=== PATIENT | female | born 1940 | race African-American/Black ===

== ENCOUNTER → 2016-12-14 | Outpatient (CLI) | payer MEDICARE | LOC: WI 08:03 | PROVIDERS: ATTEND Internal Medicine | DX: Z85.3 Personal history of malignant neoplasm of breast (principal) | CPT/HCPCS: 77066; G0204 ==

== ENCOUNTER → 2017-02-14 | Outpatient (CLI) | payer MEDICARE | LOC: OD 11:52 | PROVIDERS: ATTEND Internal Medicine | DX: M25.531 Pain in right wrist (principal) ==

== ENCOUNTER → 2017-12-26 | Outpatient (CLI) | payer MEDICARE ==
--- NOTE | 2017-12-26 10:22 | WOMENS IMAGING REPORT ---
EXAM DESCRIPTION: 3D DX MAMMO BILAT COMPLETED DATE/TIME: 12/26/2017 8:06 am REASON FOR STUDY: BREAST CANCER D05.11 INTRADUCTAL CARCINOMA IN SITU OF RIGHT BREAST COMPARISON: 12/14/2016 and 12/14/2015. TECHNIQUE: Standard craniocaudal and mediolateral oblique views of each breast recorded using digita l acquisition and breast tomosynthesis. Additional true lateral and exaggerated CC lateral images of the right breast with tomosynthesis. LIMITATIONS: None. FINDINGS: RIGHT BREAST MASSES: No suspicious masses. CALCIFICATIONS: No new or suspicious calcifications. ARCHITECTURAL DISTORTION: Stable surgical changes and treatment changes. DEVELOPING DENSITY: None. ASYMMETRY: None noted. OTHER: No other significant findings. LEFT BREAST MASSES: No suspicious masses. CALCIFICATIONS: No new or suspicious calcifications. ARCHITECTURAL DISTORTION: None. DEVELOPING DENSITY: None. ASYMMETRY: None noted. OTHER: No other significant finding. Read with the assistance of CAD: .[facility] - R2 Cenova Version 1.3 .[facility] - R2 Cenova Version 1.3 .[facility] Imaging - R2 Cenova Version 2.4 .[facility] - R2 Cenova Version 2.4 .[facility] - R2 Software Design Analyst Version 9.2 IMPRESSION: Stable mammographic appearance of both breasts. Stable surgical changes and treatment c hanges in the right breast. BREAST DENSITY: b. There are scattered areas of fibroglandular density. BIRAD: 2 Benign findings. RECOMMENDATION: RECOMMENDED FOLLOW UP: Post lumpectomy protocol. COMMENT: The patient has been notified of the results by letter per SA requirements. Additional no tification policies are in place for contacting patient with suspicious or incomplete findings. Quality ID #225: The [employer] recommends an annual screening mammogram for women aged 40 years or over. This facility utilizes a reminder system to ensure that all patients receive reminder letters, and/or direct phone calls for appointments. This includes reminders for routine scr eening mammograms, diagnostic mammograms, or other Breast Imaging Interventions when appropriate. Th is patient will be placed in the appropriate reminder system. The [employer] (ACR) has developed recommendations for screening MRI of the breast s in certain patient populations, to be used in conjunction with mammography. Breast MRI surveillanc e may be appropriate for women with more than 20% lifetime risk of developing breast cancer as deter mined by genetic testing, significant family history of the disease, or history of mantle radiation f or Hodgkins Disease. ACR Practice Guidelines 2008. DBT Technology DBT is a type of tomographic mammography. With conventional mammography, overlapping breast tissue ma y make lesions difficult to detect, even with good compression. DBT uses an x-ray tube that rotates a round the breast, taking images at different angles. These images are then combined to create thin sl ices of the breast that the radiologist can view as a 3D reconstruction. The [employer] unit can perform full-field digital mammograms (2D imaging); or DBT (3D imaging); or both, in a combination mode that quickly performs both the mammogram and the tomosynthesis scan while the breast is still compressed. PQRS 6045F: Fluoroscopic imaging is not utilized for breast tomosynthesis. TECHNICAL DOCUMENTATION: FINDING NUMBER: (1) ASSESSMENT: (1) JOB ID: [id number] [employer]- All Rights Reserved Reading location - IP/workstation name: [email or web address]
== END ==
LOC: WI 07:38
PROVIDERS: ATTEND Internal Medicine
DX: D05.11 Intraductal carcinoma in situ of right breast (principal)
CPT/HCPCS: 77066; G0279; 77062

== ENCOUNTER → 2018-07-11 | Outpatient (CLI) | payer MEDICARE ==
--- NOTE | 2018-07-11 08:22 | RADIOLOGY REPORT (SQ) ---
EXAM DESCRIPTION: U/S RETROPERITON (RENAL/AORTA) COMPLETED DATE/TIME: 07/11/2018 8:05 am REASON FOR STUDY: CKD IV (N18.4) N18.4 CHRONIC KIDNEY DISEASE, STAGE 4 (SEVERE) COMPARISON: 02/05/2015 TECHNIQUE: Dynamic and static grayscale images acquired of the kidneys and bladder and recorded on P ACS. Additional selected color Doppler and spectral images recorded. LIMITATIONS: None. FINDINGS: RIGHT KIDNEY: The right kidney measures 9.1 cm in length. Mild diffuse increased echogen icity of the kidney, likely related to the patient's underlying history of medical renal disease. No solid or suspicious masses. No hydronephrosis. No calcifications. LEFT KIDNEY: The left kidney measures 8.4 cm in length. Mild diffuse increased echogenicity, likely related to the patient's underlying history medical renal disease. No solid or suspicious masses. N o hydronephrosis. No calcifications. BLADDER: The urinary bladder is incompletely distended. OTHER FINDINGS: No other significant finding. IMPRESSION: 1. Mild diffuse increased echogenicity of the kidneys, likely related to the patient's underlying history of medical renal disease. 2. No evidence of hydronephrosis. 3. The urinary bladder is incompletely distended. TECHNICAL DOCUMENTATION: JOB ID: [id number] [employer]- All Rights Reserved Reading location - IP/workstation name: [email or web address]
== END ==
LOC: RAD 07:19
PROVIDERS: ATTEND Internal Medicine
DX: N18.4 Chronic kidney disease, stage 4 (severe) (principal)
CPT/HCPCS: 76770

== ENCOUNTER → 2019-01-08 | Outpatient (CLI) | payer MEDICARE ==
--- NOTE | 2019-01-08 10:40 | WOMENS IMAGING REPORT ---
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 True lateral view right breast. LIMITATIONS: None. FINDINGS: RIGHT BREAST MASSES: No suspicious masses. CALCIFICATIONS: No new or suspicious calcifications. ARCHITECTURAL DISTORTION: Upper outer quadrant, stable. DEVELOPING DENSITY: None. ASYMMETRY: None noted. OTHER: No other significant findings. LEFT BREAST MASSES: No suspicious masses. CALCIFICATIONS: No new or suspicious calcifications. ARCHITECTURAL DISTORTION: None. DEVELOPING DENSITY: None. ASYMMETRY: None noted. OTHER: No other significant finding. Read with the assistance of CAD: .[facility] - R2 Cenova Version 1.3 .[facility] Imaging - R2 Cenova Version 2.1 .[facility] - R2 Cenova Version 2.4 .[facility] [place] R2 Cenova Version 2.4 .[facility] - R2 Quality Assurance Tech Version 9.2 IMPRESSION: Stable mammographic pattern. BREAST DENSITY: b. There are scattered areas of fibroglandular density. BIRAD: 2 Benign findings. RECOMMENDATION: RECOMMENDED FOLLOW UP: Annual mammographic follow-up. SPECIFIC INTERVENTION/IMAGING/CONSULTATION RECOMMENDED:No additional intervention/ imaging/consultati on needed at this time. COMMUNICATION:The imaging findings were not discussed with the patient. Her referring provider has be en notified of the findings. COMMENT: The patient has been notified of the results by letter per SA requirements. Additional no tification policies are in place for contacting patient with suspicious or incomplete findings. Quality ID #225: The [employer] recommends an annual screening mammogram for women aged 40 years or over. This facility utilizes a reminder system to ensure that all patients receive reminder letters, and/or direct phone calls for appointments. This includes reminders for routine scr eening mammograms, diagnostic mammograms, or other Breast Imaging Interventions when appropriate. Th is patient will be placed in the appropriate reminder system. The [employer] (ACR) has developed recommendations for screening MRI of the breast s in certain patient populations, to be used in conjunction with mammography. Breast MRI surveillanc e may be appropriate for women with more than 20% lifetime risk of developing breast cancer as deter mined by genetic testing, significant family history of the disease, or history of mantle radiation f or Hodgkins Disease. ACR Practice Guidelines 2008. DBT Technology DBT is a type of tomographic mammography. With conventional mammography, overlapping breast tissue ma y make lesions difficult to detect, even with good compression. DBT uses an x-ray tube that rotates a round the breast, taking images at different angles. These images are then combined to create thin sl ices of the breast that the radiologist can view as a 3D reconstruction. The [employer] unit can perform full-field digital mammograms (2D imaging); or DBT (3D imaging); or both, in a combination mode that quickly performs both the mammogram and the tomosynthesis scan while the breast is still compressed. PQRS 6045F: Fluoroscopic imaging is not utilized for breast tomosynthesis. TECHNICAL DOCUMENTATION: FINDING NUMBER: (1) ASSESSMENT: (1) JOB ID: [id number] [employer]- All Rights Reserved Reading location - IP/workstation name: [email or web address]
== END ==
LOC: WI 08:55
PROVIDERS: ATTEND Internal Medicine
DX: D05.11 Intraductal carcinoma in situ of right breast (principal)
CPT/HCPCS: 77066; G0279; 77062

== ENCOUNTER 2019-07-17 05:53 | Day surgery (SDC) | payer MEDICARE ==
[2019-07-17 07:35] LABS: INTERNATIONAL RATION (INR) 1.05; PROTHROMBIN TIME 13.7 SEC (11.4-15.4)
[2019-07-17 07:36] LABS: PARTIAL THROMBOPLASTIN TIME 36.7 SEC (23.5-35.8)
[2019-07-17 07:38] LABS: HEMATOCRIT 26.7 % (36.0-47.0); HEMOGLOBIN 8.6 g/dL (12.0-15.5); MEAN CORPUSCULAR HEMOGLOBIN 28.6 pg (27.0-33.4); MEAN CORPUSCULAR HGB CONC 32.2 g/dL (32.0-36.0); MEAN CORPUSCULAR VOLUME 89 fl (80-97); PLATELET COUNT 180 10^3/uL (150-450); RED BLOOD COUNT 3.01 10^6/uL (3.72-5.28); RED CELL DISTRIBUTION WIDTH 15.6 % (11.5-14.0); WHITE BLOOD COUNT 5.2 10^3/uL (4.0-10.5)
[2019-07-17 07:58] LABS: BLOOD UREA NITROGEN 52 mg/dL (7-20)
[2019-07-17] MEDS ORDERED: FENTANYL CITRATE INJ/PF 100 MCG/2 ML AMPUL ONE (08:16)
[2019-07-17] MEDS ORDERED: MIDAZOLAM 2 MG/2 ML INJ ONE (08:16)
--- NOTE | 2019-07-17 09:22 | RADIOLOGY REPORT (SQ) ---
EXAM DESCRIPTION: CT NEEDLE PLACEMENT COMPLETE DATE/TIME: 07/17/2019 8:42 am REASON FOR STUDY: CKD STAGE 3, RENAL BIOPSY N18.3 CHRONIC KIDNEY DISEASE, STAGE 3 (MODERATE) Z79.89 9 OTHER CARE HOME (CURRENT) DRUG THERAPY Z79.01 RAILROAD BRAKEMAN (CURRENT) USE OF ANTICOAGULANTS FINDINGS: Please see combined report for performance of procedure and radiologic supervision and int erpretation. IMPRESSION: Please see combined report for performance of procedure and radiologic supervision and i nterpretation. Reading location - IP/workstation name: [email or web address]
--- NOTE | 2019-07-17 09:22 | RADIOLOGY REPORT (SQ) ---
EXAM DESCRIPTION: CT BIOPSY RENAL COMPLETED DATE/TIME: 07/17/2019 8:43 am REASON FOR STUDY: CKD STAGE 3 N18.3 CHRONIC KIDNEY DISEASE, STAGE 3 (MODERATE) Z79.899 OTHER SENIOR CARE (CURRENT) DRUG THERAPY Z79.01 SENIOR CARE (CURRENT) USE OF ANTICOAGULANTS COMPARISON: None. RADIATION DOSE: CT Rad equipment meets quality standard of care and radiation dose reduction techniq ues were employed. CTDIvol: 5.7 - 20.2 mGy. DLP: 504 mGy-cm. mGy. LIMITATIONS: None. PROCEDURE: After obtaining informed consent and explaining the risks and benefits of conscious sedat ion,the patient agreed to the procedure. Preliminary CT scanning to localize the biopsy site was performed. A site was marked on the left kid farheen and time out was performed. Procedure was performed using CT fluoroscopy. Total exposure time: [address] fluoroscopic images were obtained and saved to PACS. IV conscious sedation was administered and physician direction by the registered nurse using 1.0 mill igrams of Versed and 25 micrograms of fentanyl. Physiologic monitoring was provided before, during, a nd after sedation. The total sedation time was 10 minutes. Documentation face to face time, the performing proceduralist, spent monitoring the patient: 10 minut es. After sterile skin prep with 10 mL of 1% lidocaine, local lidocaine for skin and deep tissue anesthes ia, the left kidney was localized. A coaxial 18 gauge needle was used to obtain 3 cores of tissue fro m the left kidney. The biopsy tract was embolized with Gelfoam. All CT scanners at this facility use dose modulation, iterative reconstruction, and/or weight based d osing when appropriate to reduce radiation dose to as low as reasonably achievable (ALARA). [facility]: Dose Right [facility]: CareDose [facility]: Dose Right [facility]: Teradose 4D [facility]: Musicplayr FINDINGS: There were no immediate complications. Specimen was carried to cytology on sterile saline gauze and submitted to the waiter/waitress second class for processing. Pathology is pending at the time of dict ation. IMPRESSION: CT GUIDED LEFT KIDNEY CORTICAL BIOPSY. COMMENT: Patient medication list reviewed:Yes- Quality ID# [id number]:Eligible professional attests to docu menting in the medical record they obtained, updated, or reviewed the patient's current medications.. TECHNICAL DOCUMENTATION: JOB ID: [id number] Quality ID #145: Final reports for procedures using fluoroscopy that document radiation exposure jerilyn nhi, or exposure time and number of fluorographic images (if radiation exposure indices are not avail able) Quality ID # 436: Final reports with documentation of one or more dose reduction techniques (e.g., Au tomated exposure control, adjustment of the mA and/or kV according to patient size, use of iterative reconstruction technique) 2010 [employer]- All Rights Reserved Reading location - IP/workstation name: [email or web address]
[2019-07-17 11:11] VITALS: BP 127/70
== END 2019-07-17 10:45 | disposition home or self-care (01) ==
LOC: RAD 05:53
PROVIDERS: ATTEND Internal Medicine Nephrology
DX: I12.9 Hypertensive chronic kidney disease with stage 1 through stage 4 chronic kidney disease, or unspecified chronic kidney disease (principal); N18.3 Chronic kidney disease, stage 3 (moderate); E78.5 Hyperlipidemia, unspecified; M10.9 Gout, unspecified; Z85.3 Personal history of malignant neoplasm of breast; Z79.899 Other long term (current) drug therapy; Z79.01 Long term (current) use of anticoagulants
CPT/HCPCS: 36415; 84520; 82565; 85027; 85610; 85730; 88346 ×2; 88348 ×2; 88313 ×2; 77012; 50200; J2250; J3010

== ENCOUNTER 2019-08-06 09:05 | Day surgery (SDC) | payer MEDICARE ==
[2019-08-06 09:55] LABS: HEMATOCRIT 26.8 % (36.0-47.0); HEMOGLOBIN 8.6 g/dL (12.0-15.5); MEAN CORPUSCULAR HEMOGLOBIN 28.6 pg (27.0-33.4); MEAN CORPUSCULAR HGB CONC 32.2 g/dL (32.0-36.0); MEAN CORPUSCULAR VOLUME 89 fl (80-97); PLATELET COUNT 188 10^3/uL (150-450); RED BLOOD COUNT 3.02 10^6/uL (3.72-5.28); RED CELL DISTRIBUTION WIDTH 15.8 % (11.5-14.0); WHITE BLOOD COUNT 4.8 10^3/uL (4.0-10.5)
[2019-08-06 10:03] LABS: INTERNATIONAL RATION (INR) 1.09; PARTIAL THROMBOPLASTIN TIME 35.1 SEC (23.5-35.8); PROTHROMBIN TIME 14.1 SEC (11.4-15.4)
[2019-08-06 11:07] LABS: BLOOD UREA NITROGEN 47 mg/dL (7-20)
[2019-08-06] MEDS ORDERED: FENTANYL CITRATE INJ/PF 100 MCG/2 ML AMPUL ONE (11:19)
[2019-08-06] MEDS ORDERED: MIDAZOLAM 2 MG/2 ML INJ ONE (11:19)
[2019-08-06 13:52] VITALS: BP 132/67
--- NOTE | 2019-08-06 15:54 | RADIOLOGY REPORT (SQ) ---
EXAM DESCRIPTION: CT BIOPSY BONE MARROW, NEEDLE; CT NEEDLE PLACEMENT COMPLETED DATE/TIME: 08/06/2019 11:48 am; 08/06/2019 11:47 am REASON FOR STUDY: MONOCLONAL GAMMOPATHY; MONOCLONAL GAMMOPATHY, BONE MARROW BIOPSY D47.2 MONOCLONAL GAMMOPATHY COMPARISON: None. TECHNIQUE: CT guided biopsy of the left iliac crest bone marrow performed with conscious sedation. CT Fluoroscopy Time: [address] scanners at this facility use dose modulation, iterative reconstruction, and/or weight based d osing when appropriate to reduce radiation dose to as low as reasonably achievable (ALARA). [facility]: Dose Right [facility]: CareDose [facility]: Dose Right [facility]: Teradose 4D [facility]: Vaultize FINDINGS: The procedure, risks, benefits, and alternatives were discussed with the patient in the pr eprocedural area, and all questions were answered. Informed consent was obtained verbally and in writ ing. The patient was then brought to the CT suite, positioned prone on the CT gurney, and a time-out was p erformed. After that, axial images of the pelvis were obtained for targeting of the iliac tuberosity. Based on review of the axial images an appropriate access site was selected on the left buttock. The area around selected access site was then prepped and draped 2% chlorhexidine utilizing standard sterile technique. After that, the access site was infiltrated 1% lidocaine and an incision was made in the skin with a #11 blade. An 11 gauge Osteo-Site Mondragon coaxial needle was then advanced into the iliac tuberosity. After that, the inner stylet of the coaxial needle was replaced for a 13 gauge bio psy needle and 1 core sample was obtained. 20-30 mL of marrow aspirate were then collected through th e cannula of the coaxial needle. Once the aspirate was collected, the cannula of the Osteo-Site Erika y coaxial needle was removed and axial images of the biopsied area were obtained to exclude an acute complication. The patient tolerated the procedure well without immediate complication. At the end of the procedure the patient's condition was unchanged from the preprocedural baseline. IV conscious sedation was administered at the direction of the performing physician by a guillermo gallagher. 1 milligrams of Versed and 75 micrograms of fentanyl. Physiologic monitoring was provided before, during, and after sedation. The total sedation time was 3 0 minutes. Documentation of vezw-go-vjld time performing proceduralist spent monitoring the patient: 8 minutes. IMPRESSION: CT GUIDED ASPIRATE AND CORE BIOPSY OF THE LEFT POSTERIOR ILIAC CREST BONE MARROW PERFORM ED WITHOUT IMMEDIATE COMPLICATION. PATHOLOGY PENDING. IV CONSCIOUS SEDATION WITHOUT COMPLICATION. COMMENT: Quality ID 145: Final reports for procedures using fluoroscopy that document radiation exp osure indices, or exposure time and number of fluorographic images (if radiation exposure indices are not available) Patient medication list reviewed: Yes- Quality ID# [id number]:Eligible professional attests to documenting i n the medical record they obtained, updated, or reviewed the patient's current medications.. TECHNICAL DOCUMENTATION: JOB ID: [id number] Quality ID# 436: Final reports with documentation of one or more dose reduction techniques (e.g., Aut omated exposure control, adjustment of the mA and/or kV according to patient size, use of iterative r econstruction technique) 2010 [employer]- All Rights Reserved Reading location - IP/workstation name: [email or web address]
== END 2019-08-06 15:05 | disposition home or self-care (01) ==
LOC: RAD 09:05
PROVIDERS: ATTEND Internal Medicine
DX: D47.2 Monoclonal gammopathy (principal); I12.9 Hypertensive chronic kidney disease with stage 1 through stage 4 chronic kidney disease, or unspecified chronic kidney disease; N18.9 Chronic kidney disease, unspecified; M10.9 Gout, unspecified
CPT/HCPCS: 36415; 84520; 82565; 85027; 85610; 85730; 38221; 77012; J2250; J3010

== ENCOUNTER → 2020-01-13 | Outpatient (CLI) | payer MEDICARE ==
--- NOTE | 2020-01-13 09:49 | WOMENS IMAGING REPORT ---
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 True lateral and exaggerated CC views right breast. Read with the assistance of CAD: .[facility] - [employer] Assistant Property Manager Version 9.2 LIMITATIONS: None. FINDINGS: RIGHT BREAST MASSES: No suspicious masses. CALCIFICATIONS: No new or suspicious calcifications. ARCHITECTURAL DISTORTION: Upper outer quadrant status post lumpectomy, stable. ASYMMETRY: None noted. OTHER: No other significant findings. LEFT BREAST MASSES: No suspicious masses. CALCIFICATIONS: No new or suspicious calcifications. ARCHITECTURAL DISTORTION: None. ASYMMETRY: None noted. OTHER: No other significant finding. IMPRESSION: Stable mammographic pattern. BREAST DENSITY: b. There are scattered areas of fibroglandular density. BIRAD: ASSESSMENT: 2 Benign findings. RECOMMENDATION: RECOMMENDED FOLLOW UP: Annual mammographic follow-up. SPECIFIC INTERVENTION/IMAGING/CONSULTATION RECOMMENDED:No additional intervention/ imaging/consultati on needed at this time. COMMUNICATION:The imaging findings were not discussed with the patient. Her referring provider has be en notified of the findings. COMMENT: The patient has been notified of the results by letter per SA requirements. Additional no tification policies are in place for contacting patient with suspicious or incomplete findings. Quality ID #225: The [employer] recommends an annual screening mammogram for women aged 40 years or over. This facility utilizes a reminder system to ensure that all patients receive reminder letters, and/or direct phone calls for appointments. This includes reminders for routine scr eening mammograms, diagnostic mammograms, or other Breast Imaging Interventions when appropriate. Th is patient will be placed in the appropriate reminder system. TECHNICAL DOCUMENTATION: FINDING NUMBER: (1) ASSESSMENT: (1) JOB ID: [id number] 2010 [email or web address]- All Rights Reserved Reading location - IP/workstation name: [email or web address]
== END ==
LOC: RAD 08:05
PROVIDERS: ATTEND Internal Medicine
DX: D05.11 Intraductal carcinoma in situ of right breast (principal)
CPT/HCPCS: 77066; G0279; 77062

== ENCOUNTER → 2020-04-15 | Outpatient (CLI) | payer MEDICARE ==
--- NOTE | 2020-04-15 16:06 | RADIOLOGY REPORT (SQ) ---
EXAM DESCRIPTION: BONE SURVEY COMPLETE IMAGES COMPLETED DATE/TIME: 04/15/2020 3:39 pm REASON FOR STUDY: D47.2 MONOCLONAL GAMMOPATHY D47.2 MONOCLONAL GAMMOPATHY COMPARISON: None. TECHNIQUE: Images of the axial and proximal appendicular skeleton are obtained, along with lateral s kull and frontal chest films. LIMITATIONS: None. FINDINGS: AP CHEST: No bony findings. Lungs are clear. Probable calcified granuloma in the periphe ry of the left upper lobe. LATERAL SKULL: No worrisome bone lesions. AP BOTH HUMERI: No worse on bone lesions. Small lucencies in the humeral head on the left noted thes e have a thick rim of sclerosis. TWO-VIEW LUMBAR SPINE: No worrisome bone lesions. TWO-VIEW THORACIC SPINE: No worrisome bone lesions. AP PELVIS: No worrisome bone lesions. AP BOTH FEMURS: Lucencies in the left femoral head are most consistent with subchondral cysts. OTHER: No other significant finding. IMPRESSION: NO WORRISOME BONE LESIONS. TECHNICAL DOCUMENTATION: JOB ID: [id number] 2010 [email or web address]- All Rights Reserved Reading location - IP/workstation name: [email or web address]
== END ==
LOC: RAD 14:39
PROVIDERS: ATTEND Physician Assistant Medical
DX: D47.2 Monoclonal gammopathy (principal); M85.68 Other cyst of bone, other site
CPT/HCPCS: 77075